=== PATIENT | female | born 1990 | race African-American/Black ===

== ENCOUNTER 2023-12-30 22:23 | Emergency (ER) | payer OTHER, SELFPAY ==
--- NOTE | ~2023-12-30 | XR_ITS ---
EXAMINATION: XR CHEST CLINICAL INFORMATION: Dyspnea COMPARISON: None available. TECHNIQUE: Frontal view of the chest was obtained. FINDINGS: Normal appearance of the cardiomediastinal structures. No effusions or pneumothoraces. No focal pulmonary consolidation. Normal pattern of pulmonary vasculature. No skeletal lesions noted. XR/XR chest 1V IMPRESSION: Normal chest radiograph Electronically signed by: Henry Cordoba MD 12/31/2023 12:25 AM EDT
[2023-12-30 23:17] VITALS: BP 183/116; PULSE 115; RESP 20; TEMP 36.8; O2SAT 98; BMI 60.9
[2023-12-31 00:14] LABS: Influenza A PCR NEGATIVE (Negative); Influenza B PCR NEGATIVE (Negative); Resp Syncy Virus RNA Qual PCR NEGATIVE (Negative); SARS COV2 PCR INHOUSE NEGATIVE (Negative)
[2023-12-31 02:40] VITALS: BP 133/90; PULSE 107; O2SAT 97
[2023-12-31] MEDS: Acetaminophen 325 MG TABLET 975 MG PO (02:55)
== END 2023-12-31 05:11 | disposition left against medical advice (07) ==
PROVIDERS: Emergency Provider Emergency Medicine; PCP Internal Medicine
DX: R06.02 Shortness of breath (principal); R51.9 Headache, unspecified; Z03.818 Encounter for observation for suspected exposure to other biological agents ruled out
CPT/HCPCS: 0241U; 71045; 99281; 99284